=== PATIENT | female | born 1965 | race Caucasian/White ===

== ENCOUNTER → 2017-12-09 | Outpatient (CLI) | payer OTHER ==
[~2017-12-09] MED LIST: ASPI325 PO; DOC250 PO; ESTRADIOL TOP; INSDET100; LIRA0.6P; LOSA25 PO; METF500 PO; ROSU5 PO; SIMV10 PO; STOOL SOFTENER OTC
[2017-12-11 11:40] LABS: HPV Genotype 16 Not Detected (NOTDET); HPV Genotype 18 Not Detected (NOTDET)
[2017-12-20 10:28] LABS: HPV High Risk Other Not Detected (NOTDET)
== END | disposition home or self-care (01) ==
LOC: OLS 16:02
PROVIDERS: Obstetrics & Gynecology Gynecology
DX: Z12.72 Encounter for screening for malignant neoplasm of vagina (principal)
CPT/HCPCS: 87624; G0123

== ENCOUNTER 2018-12-30 14:12 | Inpatient (IN) | payer OTHER, BC ==
[~2018-12-30] VITALS: Ht 162.6 cm; Wt 99.8 kg
[2018-12-30] MEDS ORDERED: JARDIANCE10 MG PO (14:21)
[2018-12-30 15:43] LABS: BASOPHILS ABSOLUTE AUTO 0.06 K/mm3 (0.00-0.23); BASOPHILS PERCENT AUTO 1 % (0-2); EOSINOPHILS ABSOLUTE AUTO 0.08 K/mm3 (0.00-0.68); EOSINOPHILS PERCENT AUTO 1 % (0-6); Hematocrit 46.5 % (33.0-51.0); Hemoglobin 14.7 g/dL (11.5-16.0); IMMATURE GRAN ABSOLUTE AUTO 0.03 K/mm3 (0.00-0.10); IMMATURE GRAN PERCENT AUTO 0 % (0-1); LYMPHOCYTES ABSOLUTE AUTO 1.32 K/mm3 (0.84-5.20); LYMPHOCYTES PERCENT AUTO 13 % (21-46); MONOCYTES PERCENT AUTO 6 % (4-13); Mean Corpuscular HGB 28.4 pg (26.0-34.0); Mean Corpuscular HGB Conc 31.6 g/dL (31.5-36.5); Mean Corpuscular Volume 90 fL (80-100); Mean Platelet Volume 9.7 fL (9.1-12.4); NEUTROPHILS ABSOLUTE AUTO 7.79 K/mm3 (1.96-9.15); NEUTROPHILS PERCENT AUTO 79 % (41-73); Platelet Count 235 K/mm3 (150-400); RDW Coefficient Variation 13.2 % (11.7-14.2); RDW Standard Deviation 43.7 fL (35.1-46.3); Red Blood Cell Count 5.18 M/mm3 (3.80-5.20); White Blood Cell Count 9.88 K/mm3 (4.00-11.30)
[2018-12-30 16:03] LABS: Alanine Aminotransfer (ALT/SGP 22 U/L (12-78); Albumin, Blood 3.9 g/dL (3.4-5.0); Albumin/Globulin Ratio 0.9 (0.8-1.8); Alk Phos 127 U/L (50-136); Anion Gap 9 mmol/L (6-16); Aspartate Aminotrans (AST/SGOT 16 U/L (12-37); Bilirubin, Total 0.4 mg/dL (0.1-1.0); Blood Urea Nitrogen 16 mg/dL (8-24); Bun/Creatinine Ratio 21.4 (12.0-20.0); CO2, Blood 27 mmol/L (21-32); Calcium, Blood 8.9 mg/dL (8.5-10.1); Chloride, Blood 103 mmol/L (98-108); Creatinine, Blood 0.75 mg/dL (0.40-1.00); Globulin, Blood 4.2 g/dL (2.2-4.0); Glomerular Filtration Rate >60 (60-); Glucose, Blood 147 mg/dL (70-99); Potassium, Blood 3.6 mmol/L (3.5-5.5); Sodium, Blood 139 mmol/L (136-145); Total Protein, Blood 8.1 g/dL (6.4-8.2)
--- NOTE | 2018-12-30 18:44 | NUR ---
NEW ADMIT ARRIVED AT 1833 VIA STRETCHER. FAMILY AT BEDSIDE. PT AXO X4. CALL LIGHT IN REACH. BED IN LOWEST POSITION.
--- NOTE | 2018-12-30 19:37 | NUR ---
PT ADMITTED TO FLOOR. IVF STARTED AT 100ML/HR PER ORDERS. NARE CULTURE OBTAINED. ASSISTED PT TO RR, URINE COLLECTED. ABSCESS ASSESSED AND NEW 4X4 PLACED. PT ALERT AND ORIENTED. PT FAMILY AT BEDSIDE.
[2018-12-30 19:49] LABS: Source, Urine Clean Catch
[2018-12-30 19:57] LABS: Appearance, Urine Clear (Clear); Bilirubin, Urine Neg (Neg); Blood, Urine Neg (Neg); Color, Urine Yellow (P-Yellow); Glucose Qualitative, Urine 4+ (Neg); Ketones, Urine 2+ (Neg); Leukocyte Esterase, Urine 2+ (Neg); Nitrite, Urine Neg (Neg); Protein, Urine Neg (Neg); Urobilinogen, Urine NORM (Normal)
--- NOTE | 2018-12-30 20:00 | NUR ---
PT LYING IN BED, FAMILY IN ROOM. PT ORIENTED TO ROOM, QUESTIONS ANSWERED, VITALS STABLE NO DISTRESS NOTED AT THIS TIME. PT REQ TO HAVE FULL ASSESSMENT DONE AT LATER TIME AFTER FAMILY LEAVES. WILL CONT TO MONITOR AND TX PER ORDERS.
[2018-12-30 20:06] LABS: Bacteria Not Seen /hpf; Red Blood Cells, Urine Not Seen /hpf (0-2); Squamous Epithelial Cells Few /hpf (Few)
[2018-12-30] MEDS ORDERED: HUMALOG KW200 UNIT/1 SC (21:39)
[2018-12-30] MEDS ORDERED: HYDR1TAB94 PO (21:40)
[2018-12-31 04:41] LABS: BASOPHILS ABSOLUTE AUTO 0.05 K/mm3 (0.00-0.23); BASOPHILS PERCENT AUTO 1 % (0-2); EOSINOPHILS ABSOLUTE AUTO 0.08 K/mm3 (0.00-0.68); EOSINOPHILS PERCENT AUTO 1 % (0-6); Hematocrit 40.5 % (33.0-51.0); Hemoglobin 12.7 g/dL (11.5-16.0); IMMATURE GRAN ABSOLUTE AUTO 0.03 K/mm3 (0.00-0.10); IMMATURE GRAN PERCENT AUTO 0 % (0-1); LYMPHOCYTES ABSOLUTE AUTO 0.93 K/mm3 (0.84-5.20); LYMPHOCYTES PERCENT AUTO 9 % (21-46); MONOCYTES ABSOLUTE AUTO 0.74 K/mm3 (0.16-1.47); MONOCYTES PERCENT AUTO 7 % (4-13); Mean Corpuscular HGB 28.4 pg (26.0-34.0); Mean Corpuscular HGB Conc 31.4 g/dL (31.5-36.5); Mean Corpuscular Volume 91 fL (80-100); Mean Platelet Volume 9.5 fL (9.1-12.4); NEUTROPHILS ABSOLUTE AUTO 8.84 K/mm3 (1.96-9.15); NEUTROPHILS PERCENT AUTO 83 % (41-73); Platelet Count 199 K/mm3 (150-400); RDW Coefficient Variation 13.4 % (11.7-14.2); RDW Standard Deviation 45.2 fL (35.1-46.3); Red Blood Cell Count 4.47 M/mm3 (3.80-5.20); White Blood Cell Count 10.67 K/mm3 (4.00-11.30)
[2018-12-31 04:58] LABS: Anion Gap 10 mmol/L (6-16); Blood Urea Nitrogen 12 mg/dL (8-24); Bun/Creatinine Ratio 15.1 (12.0-20.0); CO2, Blood 24 mmol/L (21-32); Chloride, Blood 105 mmol/L (98-108); Creatinine, Blood 0.79 mg/dL (0.40-1.00); Glomerular Filtration Rate >60 (60-); Glucose, Blood 187 mg/dL (70-99); Potassium, Blood 3.8 mmol/L (3.5-5.5); Sodium, Blood 139 mmol/L (136-145)
--- NOTE | 2018-12-31 07:53 | NUR ---
PT VSS T/O NIGHT. PAIN MGD PER EMAR W/REP RELIEF. PT REP PAIN SLIGHTLY IMPROVED SINCE LANCED IN ER. SITE CONT TO DRAIN SM AMT SS DRNG, GAUZE REPLACED PRN. PT AMB INDEP IN ROOM, IS VOIDING URINE W/O DIFFICULTY. PT NPO POST MIDNIGHT FOR POSS OR TODAY. IVF AND ABX CONT PER ORDERS. REP GIVEN TO DAY RN.
--- NOTE | 2018-12-31 08:19 | NUR ---
SURGICAL CONSULT SPOKE WITH DR. CARDOSO. DR. CARDOSO AWARE OF CONSULT AND VERB HE WOULD SEE PT LATER TODAY. PT UPDATED ON TX PLAN.
--- NOTE | 2018-12-31 14:24 | NUR ---
PT TO DAY SURGERY AT THIS TIME
--- NOTE | 2018-12-31 14:30 | NUR ---
"DAY SURGERY RN | ADMIT, REPORT TO APOORVA MCCLENDON"
--- NOTE | 2018-12-31 16:10 | NUR ---
12/31/18 1610 Hyadee Guerrero PATIENT ON SCHEDULED ANTIBIOTICS
--- NOTE | 2018-12-31 18:09 | NUR ---
SHIFT SUMMARY S/P I&D OF R BUTTOCK ABSCESS. PT REPORT TENDERNESS AT THE SITE, BUT DENIES NEED FOR PAIN MEDICATION. GAUZE TO BUTTOCK WITH SMALL SS DRAINAGE. PT UP WITH SBA TO RESTROOM POST OP. IVF INFUSING PER ORDERS. GEORGE CLEAR LIQ DIET. POST OP VSS. PT USES CALL LIGHT APPROPRIATELY. FAMILY AT BEDSIDE FOR SUPPORT.
[2019-01-01 04:11] LABS: BASOPHILS ABSOLUTE AUTO 0.02 K/mm3 (0.00-0.23); BASOPHILS PERCENT AUTO 0 % (0-2); EOSINOPHILS PERCENT AUTO 0 % (0-6); Hematocrit 42.1 % (33.0-51.0); Hemoglobin 13.3 g/dL (11.5-16.0); IMMATURE GRAN ABSOLUTE AUTO 0.07 K/mm3 (0.00-0.10); IMMATURE GRAN PERCENT AUTO 1 % (0-1); LYMPHOCYTES ABSOLUTE AUTO 0.84 K/mm3 (0.84-5.20); LYMPHOCYTES PERCENT AUTO 9 % (21-46); MONOCYTES ABSOLUTE AUTO 0.27 K/mm3 (0.16-1.47); MONOCYTES PERCENT AUTO 3 % (4-13); Mean Corpuscular HGB 28.9 pg (26.0-34.0); Mean Corpuscular HGB Conc 31.6 g/dL (31.5-36.5); Mean Corpuscular Volume 91 fL (80-100); Mean Platelet Volume 9.4 fL (9.1-12.4); NEUTROPHILS ABSOLUTE AUTO 8.21 K/mm3 (1.96-9.15); NEUTROPHILS PERCENT AUTO 87 % (41-73); Platelet Count 204 K/mm3 (150-400); RDW Standard Deviation 43.3 fL (35.1-46.3); Red Blood Cell Count 4.61 M/mm3 (3.80-5.20); White Blood Cell Count 9.41 K/mm3 (4.00-11.30)
--- NOTE | 2019-01-01 04:28 | NUR ---
SHIFT SUMMARY: S/P I&D OF R BUTTOCK ABSCESS. TENDERNESS AND REDNESS NOTED AT SITE. PT REFUSES PAIN MEDICATION AND STATES PAIN IS TOLERAB;E. REPOSITIONING SELF IN BED. OOB TO BATHROOM WITH 1 SBA. SALINE LOCKED AT THIS TIME EXCEPT WHEN ABX ARE INFUSING. DRINKING AND VOIDING ADEQUATE AMT. GEORGE CLR LIQ. DENIES N/V. BLOOD GLUCOSE HIGH IN BEGINNING OF SHIFT AT 398. COVERED WITH 8 UNITS. PT RESTING MOST OF SHIFT.
[2019-01-01 04:32] LABS: Anion Gap 10 mmol/L (6-16); Blood Urea Nitrogen 17 mg/dL (8-24); Bun/Creatinine Ratio 23.9 (12.0-20.0); CO2, Blood 20 mmol/L (21-32); Calcium, Blood 8.4 mg/dL (8.5-10.1); Chloride, Blood 108 mmol/L (98-108); Creatinine, Blood 0.71 mg/dL (0.40-1.00); Glomerular Filtration Rate >60 (60-); Glucose, Blood 179 mg/dL (70-99); Potassium, Blood 4.5 mmol/L (3.5-5.5); Sodium, Blood 138 mmol/L (136-145)
[2019-01-01] MEDS ORDERED: Augmentin 875-1 EACH PO (08:39)
[2019-01-01] MEDS ORDERED: FLUC150A PO (08:41)
--- NOTE | 2019-01-01 10:22 | NUR ---
DR. CARDOSO IN TO REMOVE PACKING. GAUZE PLACED OVER SITE. PT BEING DISCHARGED HOME. PT SHOWERING AT THIS TIME.
--- NOTE | 2019-01-01 10:37 | NUR ---
DISCHARGE PT DISCHARGING HOME AFTER SHOWER TODAY. DR. CARDOSO DID REMOVE PACKING FROM RECTAL ABSCESS. PT EDUCATED ON AND RECEIVING PRINTING DC INSTRUCTIONS. PT VERBALIZED AN UNDERSTANDING. PT GIVEN EXTRA GAUZE FOR WOUND CARE. IV DC'D. RX FOR ABX FAXED TO [facility] PER PT REQUEST. PT GATHERED PERSONAL BELONGINGS. PT CALLING FAMILY FOR TRANSPORTATION.
--- NOTE | 2019-01-01 12:11 | NUR ---
PT DISCHARGED HOME
== END 2019-01-01 12:12 | disposition home or self-care (01) | DRG 854 ==
LOC: ER 14:12 → SURS 17:42 → ER 17:42 → SURS 18:36
PROVIDERS: Emergency Medicine; Hospitalist; Nurse Practitioner Acute Care; Surgery; ADMIT Internal Medicine
PROC: 0H98XZZ Drainage of Buttock Skin, External Approach (ICD-10-PCS; 2018-12-30)
PROC: 0D9QXZZ Drainage of Anus, External Approach (ICD-10-PCS; principal; 2018-12-31 12:15)
DX: A41.9 Sepsis, unspecified organism (principal); K61.0 Anal abscess; Z79.82 Long term (current) use of aspirin; Z79.4 Long term (current) use of insulin; Z87.891 Personal history of nicotine dependence; E11.9 Type 2 diabetes mellitus without complications; I10 Essential (primary) hypertension; E06.3 Autoimmune thyroiditis
CPT/HCPCS: 36415; 46040; 74177; 80048; 80053; 81001; 82947; 83605; 85025; 87040; 87086; 93005; 93010; 96365; 96375; 99284-25; J0295; J1100; J2060; J2250; J2270; J2405; J2543; J3010; J7030; J7120; Q9967

== ENCOUNTER 2019-10-05 07:36 | Day surgery (SDC) | payer OTHER, BC ==
[~2019-10-05] VITALS: Ht 165.1 cm; Wt 105.8 kg
[~2019-10-05 07:36] MED LIST changes: +AMLO10; +Augmentin 875-1 EACH PO; +DIVIGEL1 EACH TD; +FLUC150A PO; +HUMALOG KW200 UNIT/1 SC; +HYDR1TAB94 PO; +Humalog100 UNIT/1; +INSULANPEN; +JARDIANCE10 MG PO; +METF500; -SIMV10 PO; +SIMV40 PO
[2019-10-05] MEDS ORDERED: TIMO10T (07:58)
[2019-10-05] MEDS ORDERED: EVAC340 GM (07:58)
[2019-10-05] MEDS ORDERED: TIMO.25OPS (07:59)
== END 2019-10-05 09:25 | disposition home or self-care (01) ==
LOC: ORSCSDS 07:36
PROVIDERS: Ophthalmology
PROC: 08RJ3JZ Replacement of Right Lens with Synthetic Substitute, Percutaneous Approach (ICD-10-PCS; principal; 2019-10-05 09:00)
DX: H25.11 Age-related nuclear cataract, right eye (principal); E11.36 Type 2 diabetes mellitus with diabetic cataract; E06.3 Autoimmune thyroiditis; I10 Essential (primary) hypertension; E66.01 Morbid (severe) obesity due to excess calories; Z68.38 Body mass index [BMI] 38.0-38.9, adult; Z79.82 Long term (current) use of aspirin; Z79.4 Long term (current) use of insulin; Z79.899 Other long term (current) drug therapy
CPT/HCPCS: 82947; J2001; J2250; J3010; J3301; J7120; V2632

== ENCOUNTER 2022-03-28 06:43 | Day surgery (SDC) | payer OTHER, BC ==
[~2022-03-28] VITALS: Ht 165.1 cm; Wt 84.4 kg
[~2022-03-28 06:43] MED LIST changes: +EVAC340 GM; +TIMO.25OPS; +TIMO10T
[2022-03-28] MEDS ORDERED: [UNRECOGNIZED DRUG - OTHER] (06:59)
[2022-03-28] MEDS ORDERED: SERT20L (07:01)
== END 2022-03-28 09:36 | disposition home or self-care (01) ==
LOC: ORSCSDS 06:43
PROVIDERS: Internal Medicine Gastroenterology
PROC: 0DBH8ZX Excision of Cecum, Via Natural or Artificial Opening Endoscopic, Diagnostic (ICD-10-PCS; principal; 2022-03-28 08:00)
DX: Z12.11 Encounter for screening for malignant neoplasm of colon (principal); D12.0 Benign neoplasm of cecum; E11.9 Type 2 diabetes mellitus without complications; Z79.82 Long term (current) use of aspirin; Z79.4 Long term (current) use of insulin; Z87.891 Personal history of nicotine dependence; Z79.899 Other long term (current) drug therapy
CPT/HCPCS: 82947; 88305; J2704; J7120